=== PATIENT | female | born 1990 | race Two or more races ===

== ENCOUNTER → 2020-02-11 | Outpatient (CLI) | payer OTHER | END | disposition home or self-care (01) | LOC: OFIC 805 14:15 | PROVIDERS: ATTEND Otolaryngology | DX: H60.591 Other noninfective acute otitis externa, right ear (principal); H61.21 Impacted cerumen, right ear ==

== ENCOUNTER → 2020-02-18 | Outpatient (CLI) | payer OTHER | END | disposition home or self-care (01) | LOC: OFIC 805 11:15 | PROVIDERS: ATTEND Otolaryngology | DX: H60.591 Other noninfective acute otitis externa, right ear (principal); H61.21 Impacted cerumen, right ear ==

== ENCOUNTER 2021-05-29 08:53 | Outpatient (CLI) | payer OTHER | END 2021-05-29 09:07 | disposition home or self-care (01) | LOC: SONOGRAMA 08:53 | PROVIDERS: ATTEND Obstetrics & Gynecology | DX: N84.0 Polyp of corpus uteri (principal); N93.9 Abnormal uterine and vaginal bleeding, unspecified ==